=== PATIENT | male | born 1985 | race Caucasian/White ===

== ENCOUNTER 2017-04-19 08:00 | Emergency (ER) | payer SELFPAY ==
--- NOTE | 2017-04-19 09:12 | EDM.PDOC ---
ED HPI GENERAL MEDICAL PROBLEM - General Stated Complaint: SWOLLEN LEFT EYE POSSIBLE PINKEYE Time Seen by Provider: 04/19/17 08:00 Source of Information: Reports: Patient History Limitations: Reports: No Limitations - History of Present Illness INITIAL COMMENTS - FREE TEXT/NARRATIVE: 31 y.o.w.m woke up this morning with inflamed left face with the eye lids being shot. Pt had to remove greenish material to open his left eye. Pt denied trauma. denied pain or any discomfort left eye or any other acute medical issue. Onset: Today, Sudden Onset Date: 04/19/17 Onset Time: 05:00 Duration: Hour(s): Location: Reports: Face Quality: Reports: Burning Severity: Moderate Improves with: Reports: None Worsens with: Reports: None, Other Associated Symptoms: Reports: No Other Symptoms - Related Data Allergies Allergy/AdvReac Type Severity Reaction Status Date / Time No Known Allergies Allergy Verified 04/19/17 08:35 Home Meds: Home Meds Amoxicillin/Potassium Clav [Augmentin 875-125 Tablet] 1 each PO BID #20 tablet 04/19/17 [Rx] Gentamicin [Garamycin 0.3% Ophth Soln] 3 drop EYELF TID 7 Days 04/19/17 [Rx] ED ROS GENERAL - Review of Systems Review Of Systems: See Below Constitutional: Reports: No Symptoms HEENT: Reports: Other (left face is swelling) Respiratory: Reports: No Symptoms Cardiovascular: Reports: No Symptoms Endocrine: Reports: No Symptoms GI/Abdominal: Reports: No Symptoms : Reports: No Symptoms Musculoskeletal: Reports: No Symptoms Skin: Reports: No Symptoms Neurological: Reports: No Symptoms Psychiatric: Reports: No Symptoms Hematologic/Lymphatic: Reports: No Symptoms Immunologic: Reports: No Symptoms ED EXAM GENERAL W FULL EYE - Physical Exam Exam: See Below Exam Limited By: No Limitations General Appearance: Alert, WD/WN, Mild Distress Eye Exam: Left Eye: Conjunctival Injection Visual Acuity (R) 20/: 20 Visual Acuity (L) 20/: 80 With Correction: No Eyelids: Left: Erythema Conjunctiva & Sclera: Left: Injected Cornea Exam: Left: Normal Appearance Pupillary Size: Bilateral: 4 mm Pupillary Reaction: Bilateral: Brisk Ears: Normal External Exam Nose: Normal Inspection Throat/Mouth: Normal Inspection Head: Atraumatic, Normocephalic Neck: Normal Inspection Respiratory/Chest: No Respiratory Distress, Lungs Clear Cardiovascular: Normal Peripheral Pulses GI/Abdominal: Normal Bowel Sounds (Male) Exam: Deferred (Female) Exam: Deferred Rectal (Males) Exam: Deferred Rectal (Female) Exam: Deferred Back Exam: Normal Inspection, Full Range of Motion Extremities: Normal Inspection Neurological: Alert, Oriented, CN II-XII Intact, Normal Cognition Psychiatric: Normal Affect, Normal Mood Skin Exam: Warm, Dry, Intact, Normal Color, No Rash Lymphatic: No Adenopathy Course - Vital Signs Text/Narrative:: 31 y.o.w.m woke up this morning with inflamed left face with the eye lids being shot. Pt had to remove greenish material to open his left eye. Pt denied trauma. denied pain or any discomfort left eye or any other acute medical issue. PE: Left perocular cellulitis, conjunctivitis, EOMI. PRTAA visual acuity: Please see note above Impression: Periocular cellulitis.conjuntivitis Tx: Abx prescription Plan: D/C with instructions Last Recorded V/S: Last Vital Signs Temp 37.0 C 04/19/17 08:00 Pulse 99 04/19/17 08:00 Resp 18 04/19/17 08:00 BP 123/90 04/19/17 08:00 Pulse Ox 99 04/19/17 08:00 - Orders/Labs/Meds Orders: Active Orders 24 hr Category Date Time Status Visual Acuity [Vision Test] [RC] ASDIRECTED Care 04/19/17 08:24 Active Departure - Departure Time of Disposition: 09:07 Disposition: Home, Self-Care 01 Condition: good Clinical Impression: Cellulitis, periorbital Qualifiers: Laterality: left Qualified Code(s): L03.213 - Periorbital cellulitis Conjunctivitis Qualifiers: Conjunctivitis type: acute Acute conjunctivitis type: bacterial Laterality: left Qualified Code(s): H10.32 - Unspecified acute conjunctivitis, left eye - Discharge Information Prescriptions: Amoxicillin/Potassium Clav [Augmentin 875-125 Tablet] 1 each PO BID #20 tablet Gentamicin [Garamycin 0.3% Ophth Soln] 3 drop EYELF TID 7 Days Instructions: Bacterial Conjunctivitis Referrals: PCP,None [Primary Care Provider] - Forms: Return to Work/School Form Additional Instructions: Please apply gentamicin eye drops to left eye as recommended, please take Augmentin as recommended, please follow up, please come back if your symptoms get worse acutely - My Orders Last 24 Hours: My Active Orders 04/19/17 08:24 Visual Acuity [Vision Test] [RC] ASDIRECTED - Assessment/Plan Last 24 Hours: My Active Orders 04/19/17 08:24 Visual Acuity [Vision Test] [RC] ASDIRECTED
[2017-04-19 10:51] VITALS: BP 123/90
== END 2017-04-19 09:30 | disposition home or self-care (01) ==
LOC: FB.ED 08:00
DX: L03.213 Periorbital cellulitis (principal); H10.32 Unspecified acute conjunctivitis, left eye
CPT/HCPCS: 99282; 99283